=== PATIENT | male | born 1985 | race American Indian/Alaskan Native ===

== ENCOUNTER 2018-12-08 13:23 | Emergency (ER) | payer MEDICAID ==
--- NOTE | 2018-12-08 13:31 | Event Note ---
ED Screening Note ED Screening Note: RUQ PAIN PAIN ON PALPATION This initial assessment/diagnostic orders/clinical plan/treatment(s) is/are subj ect to change based on patients health status, clinical progression and re- assessment by fellow clinical providers in the ED. Further treatment and workup at subsequent clinical providers discretion. Patient/guardian urged not to elope from the ED as their condition may be serious if not clinically assessed and managed. Initial orders include: [facility] LABS
[2018-12-08 14:21] LABS: Hematocrit 42.8 % (35.5-45.6); Hemoglobin 14.7 gm/dl (11.8-15.2); Mean Corpuscular HGB Conc 34 % (32-34); Mean Corpuscular Volume 86 fl (84-94); Platelet Count 255 K/mm3 (140-440); Red Blood Count 4.96 M/mm3 (3.65-5.03); Red Cell Distribution Width 13.3 % (13.2-15.2)
[2018-12-08] MEDS ORDERED: CATAPRES PO ONE (14:44)
[2018-12-08] MEDS ORDERED: ZOFRAN IM ONE (14:44)
[2018-12-08] MEDS ORDERED: MORPHINE IM ONE (14:44)
[2018-12-08 14:46] LABS: Alanine Aminotransferase 37 units/L (7-56); Albumin 4.5 g/dL (3.9-5); BUN/Creatinine Ratio 10; Blood Urea Nitrogen 10 mg/dL (9-20); Calcium 9.7 mg/dL (8.4-10.2); Hemolysis Index 3
--- NOTE | 2018-12-08 14:49 | Emergency Department Report ---
<CARLOS MARY - Last Filed: 12/08/18 19:29> ED Abdominal Pain HPI - General Chief Complaint: Back Pain/Injury Stated Complaint: CHEST PAIN Time Seen by Provider: 12/08/18 13:29 - Related Data Home Medications Medication Instructions Recorded Confirmed Last Taken HYDROcodone/APAP 7.5-325 [[place] 1 each PO Q6HR PRN 12/23/14 12/23/14 12/20/14 7.5/325] Previous Rx's Medication Instructions Recorded Last Taken Type HYDROcodone/APAP 5-325 [[place] 1 each PO Q6HR PRN #20 tablet 12/24/14 Unknown Rx 5/325] Ibuprofen [Motrin] 600 mg PO Q8H PRN #40 tablet 12/24/14 Unknown Rx cephALEXin [Keflex] 500 mg PO Q6HR #40 capsule 12/24/14 Unknown Rx amLODIPine [Norvasc] 5 mg PO DAILY 30 Days #30 tab 12/08/18 Unknown Rx Allergies Allergy/AdvReac Type Severity Reaction Status Date / Time No Known Allergies Allergy Verified 12/23/14 20:45 ED Past Medical Hx - Medications Home Medications: Home Medications Medication Instructions Recorded Confirmed Last Taken Type HYDROcodone/APAP 7.5-325 [[place] 1 each PO Q6HR PRN 12/23/14 12/23/14 12/20/14 H istory 7.5/325] HYDROcodone/APAP 5-325 [[place] 1 each PO Q6HR PRN #20 tablet 12/24/14 Unknown Rx 5/325] Ibuprofen [Motrin] 600 mg PO Q8H PRN #40 tablet 12/24/14 Unknown Rx cephALEXin [Keflex] 500 mg PO Q6HR #40 capsule 12/24/14 Unknown Rx amLODIPine [Norvasc] 5 mg PO DAILY 30 Days #30 tab 12/08/18 Unknown Rx ED Medical Decision Making - Lab Data Result diagrams: 12/08/18 13:49 12/08/18 13:49 - Radiology Data Radiology results: report reviewed Patient: ROSE SHARIF MR# : [id number] : 1985 Acct:[id number] Age/Sex: 33 / M ADM Date: 12/08/18 Loc: ED Attending Dr: Ordering Physician: ELVA FIGUEREDO Date of Service: 12/08/18 Procedure(s): US abdomen limited Accession Number(s): [id number] cc: ELVA FIGUEREDO ULTRASOUND ABDOMEN, LIMITED (RIGHT UPPER QUADRANT) INDICATION: right upper quadrant tenderness. COMPARISON: None available. FINDINGS: Pancreas: Obscured by overlying bowel gas. Liver: The liver is diffusely echogenic suggestive of steatosis. The liver is otherwise unremarkable. Gallbladder: Normal. Bile ducts: Normal. Common Bile Duct measures 2 mm. Free fluid: None. Additional Findings: None. IMPRESSION: 1. Gallbladder is unremarkable, no biliary dilatation. 2. Probable hepatic steatosis. 3. The pancreas is obscured by bowel gas. Signer Name: Benjamín Cowan MD Signed: 12/08/2018 5:04 PM Workstation Name: [id number] Transcribed By: SHERIF Dictated By: Benjamín Cowan MD Electronically Authenticated By: Benjamín Cowan MD Signed Date/Time: 12/08/181703 DD/ 02 TD/TT: ED Disposition Clinical Impression: Right upper quadrant pain, Malignant hypertension HTN (hypertension) Qualifiers: Hypertension type: unspecified Qualified Code(s): I10 - Essential (primary) hypertension Disposition: DC-01 TO HOME OR SELFCARE Is pt being admited?: No Does the pt Need Aspirin: No Condition: Stable Instructions: Abdominal Pain (ED), Hypertension (ED) Additional Instructions: CAT scan of the abdomen shows no acute abnormalities. Please take Tylenol or Motrin as needed for pain management. He is very important for you to take this amlodipine for your elevated blood pressure. I also referred G to a [facility] as well as her primary care provider to follow up for your hypertension and abdominal pains. Prescriptions: amLODIPine [Norvasc] 5 mg PO DAILY 30 Days #30 tab Referrals: PRIMARY CAREMD [Primary Care Provider] - 3-5 Days [facility] [Provider Group] - 3-5 Days ANTHONY PATE MD [Staff Physician] - 3-5 Days Forms: Accompanied Note, Work/School Release Form(ED) <ELVA FIGUEREDO - Last Filed: 12/09/18 20:06> ED Abdominal Pain HPI - General Source: patient Mode of arrival: Ambulatory Limitations: No Limitations - History of Present Illness Initial Comments: Patient is 33 years old male with no significant past medical history. Patient presented to the ER complaining of 5 day history of right upper quadrant pain with no radiation. Patient described his pain as crampy and sharp in nature. Patient denied any nausea or vomiting. Patient denied any fever or chills. Patient found to have a blood pressure of 165/111. MD Complaint: abdominal pain -: days(s) (5) Location: RUQ Migration to: no migration Severity scale (0 -10): 10 Consistency: intermittent ED Review of Systems ROS: Stated complaint: CHEST PAIN Other details as noted in HPI Comment: All other systems reviewed and negative Constitutional: denies: chills, fever Respiratory: denies: cough, shortness of breath, SOB with exertion Cardiovascular: denies: chest pain, palpitations, dyspnea on exertion Gastrointestinal: abdominal pain. denies: nausea, vomiting, diarrhea, constipation, hematemesis, melena, hematochezia Musculoskeletal: denies: back pain ED Past Medical Hx - Past Medical History Previous Medical History?: Yes Hx Hypertension: Yes Hx Asthma: Yes Additional medical history: Heart Mumur - Surgical History Past Surgical History?: Yes Hx Appendectomy: Yes Additional Surgical History: Appendix Removal - Social History Smoking Status: Never Smoker Substance Use Type: None ED Physical Exam - General Limitations: No Limitations General appearance: alert, in no apparent distress - Head Head exam: Present: atraumatic, normocephalic, normal inspection - Eye Eye exam: Present: normal appearance, PERRL - ENT ENT exam: Present: normal exam, normal orophraynx, mucous membranes moist - Neck Neck exam: Present: normal inspection, full ROM. Absent: tenderness, meningismus, lymphadenopathy, thyromegaly - Respiratory Respiratory exam: Present: normal lung sounds bilaterally. Absent: respiratory distress, wheezes, rales, rhonchi, chest wall tenderness - Cardiovascular Cardiovascular Exam: Present: regular rate, normal rhythm, normal heart sounds - GI/Abdominal GI/Abdominal exam: Present: soft, normal bowel sounds. Absent: distended, tenderness, guarding, rebound, rigid, organomegaly, mass, bruit, pulsatile mass, hernia - Extremities Exam Extremities exam: Present: normal inspection, full ROM, normal capillary refill. Absent: pedal edema, calf tenderness - Back Exam Back exam: Present: normal inspection, full ROM. Absent: CVA tenderness (R), CVA tenderness (L), muscle spasm, paraspinal tenderness, vertebral tenderness, rash noted - Neurological Exam Neurological exam: Present: alert, oriented X3, CN II-XII intact, normal gait, reflexes normal - Psychiatric Psychiatric exam: Present: normal mood - Skin Skin exam: Present: warm, intact, normal color ED Course Vital Signs 12/08/18 12/08/18 12/08/18 13:28 14:16 14:54 Temperature 98.3 F Pulse Rate 79 74 Respiratory 18 16 Rate Blood Pressure 165/111 Blood Pressure 156/107 [Left] O2 Sat by Pulse 100 Oximetry 12/08/18 12/08/18 15:28 17:13 Temperature 98.9 F Pulse Rate 81 Respiratory 17 18 Rate Blood Pressure Blood Pressure 137/77 [Left] O2 Sat by Pulse 98 Oximetry ED Medical Decision Making - Lab Data Result diagrams: 12/08/18 13:49 12/08/18 13:49 - Medical Decision Making Patient is 33 years old male with no significant past medical history. Patient presented to the ER complaining of 5 day history of right upper quadrant pain with no radiation. Patient described his pain as crampy and sharp in nature. Patient denied any nausea or vomiting. Patient denied any fever or chills. Patient found to have a blood pressure of 165/111. Patient labs reviewed and is unremarkable. Patient received morphine and Zofran. He also received clonidine for high blood pressure. Gallbladder Ultrasound is pending. Critical care attestation.: If time is entered above; I have spent that time in minutes in the direct care of this critically ill patient, excluding procedure time. ED Disposition Is pt being admited?: No
[2018-12-08 15:11] LABS: Bilirubin,Urine NEG (Negative); Blood,Urine SM (Negative); Color,Urine Yellow (Yellow); Mucus,Urine FEW /HPF; Urobilinogen,Urine < 2.0 mg/dL (<2.0)
--- NOTE | 2018-12-08 17:08 | Ultrasound Report ---
ULTRASOUND ABDOMEN, LIMITED (RIGHT UPPER QUADRANT) INDICATION: right upper quadrant tenderness. COMPARISON: None available. FINDINGS: Pancreas: Obscured by overlying bowel gas. Liver: The liver is diffusely echogenic suggestive of steatosis. The liver is otherwise unremarkable. Gallbladder: Normal. Bile ducts: Normal. Common Bile Duct measures 2 mm. Free fluid: None. Additional Findings: None. IMPRESSION: 1. Gallbladder is unremarkable, no biliary dilatation. 2. Probable hepatic steatosis. 3. The pancreas is obscured by bowel gas. Signer Name: Benjamín Cowan MD Signed: 12/08/2018 5:04 PM Workstation Name: [id number]
[2018-12-08 17:14] VITALS: BP 137/77
== END 2018-12-08 17:43 | disposition home or self-care (01) ==
LOC: ED 13:23
DX: I10 Essential (primary) hypertension (principal); Z79.899 Other long term (current) drug therapy; R10.11 Right upper quadrant pain; Z90.49 Acquired absence of other specified parts of digestive tract; Z79.1 Long term (current) use of non-steroidal anti-inflammatories (NSAID); J45.909 Unspecified asthma, uncomplicated
CPT/HCPCS: 36415; 76705; 80053; 81001; 83690; 85027; 96372; 99284; J2270; J2405

== ENCOUNTER 2020-05-30 10:33 | Emergency (ER) | payer SELFPAY ==
--- NOTE | 2020-05-30 10:49 | Emergency Department Report ---
Blank Doc - Documentation Documentation: 35-year-old male that presents with chest tightness, shortness of breath and c ough. Tachycardia with pulse ox of 94 in triage. 1- This initial assessment/diagnostic orders/clinical plan/ treatment(s) is/are subject to change based on pt's health status, clinical progression and re- assessment by fellow clinical providers in the ED. Further treatment and workup at subsequent clinical provers discretion. Patient/guardians urged not to elope from ED as their condition may be serious if not clinically assessed and managed. 2-cardiac work-up
[2020-05-30 11:35] LABS: Alanine Aminotransferase 30 units/L (7-56); Albumin 4.4 g/dL (3.9-5); BUN/Creatinine Ratio 16; Blood Urea Nitrogen 16 mg/dL (9-20); Calcium 9.1 mg/dL (8.4-10.2); Hemolysis Index 2
[2020-05-30] MEDS ORDERED: IBUPROFEN 400 MG TAB PO ONE (12:06)
[2020-05-30] MEDS ORDERED: ACETAMINOPHEN 325 MG TAB PO ONE (12:06)
--- NOTE | 2020-05-30 12:06 | Emergency Department Report ---
ED General Adult HPI - General Chief complaint: Dyspnea/Respdistress Stated complaint: LATHA/COUGH PUI?: No Time Seen by Provider: 05/30/20 10:41 Source: patient, RN notes reviewed, old records reviewed Mode of arrival: Ambulatory Limitations: No Limitations, Language Barrier - History of Present Illness Initial comments: The patient was evaluated in the emergency department for symptoms described in the history of present illness. He/she was evaluated in the context of the global COVID-19 pandemic, which necessitated consideration that the patient might be at risk for infection with the virus that causes COVID-19. Institu tional protocols and algorithms that pertain to the evaluation of patients at risk for COVID-19 are in a state of rapid change based on information released by regulatory bodies including the CDC and federal and state organizations. These policies and algorithms were followed during the patient's care in the emergency department. Please note that these policies, procedures and recommendations changed on a rapid basis. The patient is a 35-year-old gentleman. Patient has a history of obesity, presumed obstructive sleep apnea, does not have a CPAP as he has not had outpatient formal sleep study performed, tobacco use, cannabis use, diagnosed with COVID-01 November 2019. The patient presents to the ER today with a complaint of sore throat, swollen glands, and cough, intermittently productive of clear, dry, and yellow sputum. He denies headache, neck pain, chest pain, new or different exertional shortness of breath, vomiting and diaphoresis, denies travel, surgery, leg pain, leg swelling, DVT and pulmonary embolism risk factors. Patient does admit to 2 new sexual partners in the past few months, on questioning. Reports that he typically participates with barrier protection. No urinary symptoms. No musculoskeletal pain. Reports that his symptoms today are much milder than when he had Covid last year. -: Gradual, days(s) (1 to 2 days) Location: mouth (Throat) Radiation: non-radiation Quality: aching Consistency: constant Improves with: rest Worsens with: movement - Related Data Previous Rx's Medication Instructions Recorded Last Taken Type Ibuprofen [Motrin] 600 mg PO Q8H PRN #40 tablet 12/24/14 Unknown Rx amLODIPine 5 mg PO DAILY 30 Days #30 tab 12/08/18 Unknown Rx Acetaminophen [Non-Aspirin Extra 500 mg PO Q6HR PRN #30 tablet 05/30/20 Unknown Rx Strength] Albuterol Sulfate [Proair 90 mcg IH Q4HR PRN #2 aer.pow.ba 05/30/20 Unknown Rx Respiclick] Ibuprofen [Motrin] 600 mg PO Q8H PRN #30 tablet 05/30/20 Unknown Rx Allergies Allergy/AdvReac Type Severity Reaction Status Date / Time No Known Allergies Allergy Verified 05/30/20 10:39 ED Review of Systems ROS: Stated complaint: LATHA/COUGH Other details as noted in HPI Constitutional: denies: fever, malaise, weakness Eyes: denies: eye discharge ENT: throat pain, congestion. denies: dental pain, epistaxis Respiratory: cough. denies: wheezing Cardiovascular: denies: chest pain, palpitations, orthopnea, syncope Gastrointestinal: denies: abdominal pain, hematemesis, melena, hematochezia Genitourinary: denies: dysuria Musculoskeletal: denies: back pain Skin: denies: lesions Neurological: denies: weakness ED Past Medical Hx - Past Medical History Hx Hypertension: Yes Hx Asthma: Yes Additional medical history: Heart Mumur - Surgical History Hx Appendectomy: Yes Additional Surgical History: Appendix Removal - Social History Smoking Status: Current Every Day Smoker Substance Use Type: None - Medications Home Medications: Home Medications Medication Instructions Recorded Confirmed Last Taken Type Ibuprofen [Motrin] 600 mg PO Q8H PRN #40 tablet 12/24/14 Unknown Rx amLODIPine 5 mg PO DAILY 30 Days #30 tab 12/08/18 Unknown Rx Acetaminophen [Non-Aspirin Extra 500 mg PO Q6HR PRN #30 tablet 05/30/20 Unknown Rx Strength] Albuterol Sulfate [Proair 90 mcg IH Q4HR PRN #2 aer.pow.ba 05/30/20 Unknown Rx Respiclick] Ibuprofen [Motrin] 600 mg PO Q8H PRN #30 tablet 05/30/20 Unknown Rx ED Physical Exam - General Limitations: No Limitations General appearance: alert, in no apparent distress, obese - Head Head exam: Present: atraumatic, normocephalic - Eye Eye exam: Present: normal appearance, PERRL, EOMI. Absent: nystagmus - ENT ENT exam: Present: normal orophraynx, mucous membranes moist, normal external ear exam, other (Patient is speaking in full sentences. There is no stridor. There is no dysphonia. The uvula is midline. There is no elevation of the base of the tongue. Posterior pharynx is erythematous.) - Neck Neck exam: Present: normal inspection, tenderness, full ROM, lymphadenopathy - Respiratory Respiratory exam: Present: normal lung sounds bilaterally. Absent: respiratory distress, wheezes, rales, rhonchi, stridor, chest wall tenderness, accessory muscle use, decreased breath sounds, prolonged expiratory - Cardiovascular Cardiovascular Exam: Present: regular rate, normal rhythm, normal heart sounds. Absent: bradycardia, tachycardia, irregular rhythm, systolic murmur, diastolic murmur, rubs, gallop - GI/Abdominal GI/Abdominal exam: Present: soft. Absent: distended, tenderness, guarding, rebound, rigid, pulsatile mass - Rectal Rectal exam: Present: deferred - Extremities Exam Extremities exam: Present: normal inspection, full ROM, other (2+ pulses noted in the bilateral upper and lower extremities. There is no palpable cord. negative Homans sign. Muscular compartments are soft. The pelvis is stable.). Absent: pedal edema, calf tenderness - Back Exam Back exam: Present: normal inspection, full ROM. Absent: tenderness, CVA tenderness (R), CVA tenderness (L), paraspinal tenderness, vertebral tenderness - Neurological Exam Neurological exam: Present: alert, oriented X3, normal gait, other (No facial droop. Tongue midline. Extraocular movements intact bilaterally. Facial sensation intact to light touch in V1, V2, V3 distribution bilaterally. 5 and a 5 strength in 4 extremities. Sensation intact to light touch in 4 extremities.). Absent: motor sensory deficit - Psychiatric Psychiatric exam: Present: normal affect, normal mood - Skin Skin exam: Present: warm, dry, intact, normal color. Absent: rash ED Course Vital Signs 05/30/20 05/30/20 05/30/20 10:41 12:12 12:23 Temperature 97.4 F L Pulse Rate 102 H Respiratory 22 18 18 Rate Blood Pressure 146/99 O2 Sat by Pulse 94 100 Oximetry O2 Sat by Pulse Oximetry [ Digit-Finger] 05/30/20 12:34 Temperature Pulse Rate Respiratory Rate Blood Pressure O2 Sat by Pulse Oximetry O2 Sat by Pulse 99 Oximetry [ Digit-Finger] - Reevaluation(s) Reevaluation #1: 05/30/20 12:20 Differential diagnosis, including but not limited to: Pharyngitis, viral versus bacterial, bronchitis, chronic tobacco, chronic cannabis use Assessment and plan: 35-year-old gentleman, with resolved tachycardia, who is not currently tachycardic, tachypneic or hypoxic, heart rate 93 bpm at this time, saturating at 98% on oxygen, without DVT or pulmonary embolism risk factors, who is low risk by Wells criteria for pulmonary embolism, who had COVID-19 last year, likely presenting with pharyngitis, probable viral, and or bronchitis. Counseled patient to discontinue tobacco, marijuana smoke consumption. We will send a rapid strep. We will treat the patient's symptoms. Laboratory studies and x-ray of the chest were ordered prior to my personal evaluation of this patient. So far, they are fairly unremarkable. Patient counseled on need to follow-up with an outpatient primary care doctor, or sleep physician for formal sleep study, to diagnose presumed obstructive sleep apnea, which he reports has been suspected chronically, but is not acutely decompensated, we also discussed return precautions. 05/30/20 12:22 Troponin was sent prior to my personal evaluation of this patient. Based off of the history and physical, do not see indication to initiate cardiac or st ratification. However, troponin negative, EKG nonspecific, patient denies chest pain and new/different exertional shortness of breath to myself. Symptoms present for at least 24 hours, therefore, as per the [employer] clinical policy, acute myocardial infarction may be ruled out with 1 set of troponin/cardiac enzymes. Furthermore, the patient is at low risk for major adverse cardiac event as per the heart score. Reevaluation #2: 05/30/20 13:00 Blood pressure 116/72. Oxygen saturation: 99% on room air. Heart rate 92 bpm. Patient speaking on a cellular phone. Rapid strep negative. X-ray of the chest clear. Patient feels improved. He is suitable for discharge at this time. Return precautions are reviewed. - Pulse Oximetry Interpretation Digit-Finger Initial Pulse Oximetry Readin O2 Sat by Pulse Oximetry: 99 Actions Taken: none ED Medical Decision Making - Lab Data Result diagrams: 05/30/20 10:52 Vital Signs 05/30/20 05/30/20 10:41 12:12 Temperature 97.4 F L Pulse Rate 102 H Respiratory 22 18 Rate Blood Pressure 146/99 O2 Sat by Pulse 94 100 Oximetry Lab Results 05/30/20 05/30/20 Range/Units 10:52 10:52 Sodium 139 (137-145) mmol/L Potassium 4.2 (3.6-5.0) mmol/L Chloride 104.0 (98-107) mmol/L Carbon Dioxide 29 (22-30) mmol/L Anion Gap 10 mmol/L BUN 16 (9-20) mg/dL Creatinine 1.0 (0.8-1.3) mg/dL Estimated GFR > 60 ml/min BUN/Creatinine Ratio 16 % Glucose 113 H (75-100) mg/dL Calcium 9.1 (8.4-10.2) mg/dL Magnesium 1.90 (1.7-2.3) mg/dL Total Bilirubin 0.30 (0.1-1.2) mg/dL AST 19 (5-40) units/L ALT 30 (7-56) units/L Alkaline Phosphatase 66 (35-129) units/L Troponin T < 0.010 (0.00-0.029) ng/mL Total Protein 7.8 (6.3-8.2) g/dL Albumin 4.4 (3.9-5) g/dL Albumin/Globulin Ratio 1.3 % - EKG Data -: EKG Interpreted by Mi EKG shows normal: sinus rhythm Rate: normal - EKG Data When compared to previous EKG there are: previous EKG unavailable 05/30/20 12:30 Sinus rhythm, 93 bpm. Normal axis, high left ventricular voltage, QTC within normal limits, atrial enlargement, poor R wave progression. Abnormal EKG. Not a STEMI. - Radiology Data Radiology results: pending, report reviewed, image reviewed XR chest routine 2V INDICATION / CLINICAL INFORMATION: cough COMPARISON: None available. FINDINGS: SUPPORT DEVICES: None. HEART / MEDIASTINUM: No signif icant abnormality. LUNGS / PLEURA: Lungs are clear. Costophrenic sulci are sharp. No pneumothorax. ADDITIONAL FINDINGS: Remote right-sided rib fractures. IMPRESSION: 1. No acute findings. Signer Name: Kodak Flores MD Signed: 05/30/2020 11:52 AM Workstation Name: [email or web address] Critical care attestation.: If time is entered above; I have spent that time in minutes in the direct care of this critically ill patient, excluding procedure time. ED Disposition Clinical Impression: Pharyngitis, Bronchitis, Tobacco use, Marijuana use Disposition: DC-01 TO HOME OR SELFCARE Is pt being admited?: No Does the pt Need Aspirin: No Condition: Good Instructions: Upper Respiratory Infection, Adult, [id number], Pharyngitis, [id number], Chronic Bronchitis (ED) Additional Instructions: Recommend that patient discontinue smoking cigarettes, tobacco, and all smoke products/marijuana. Patient most likely has bronchitis and pharyngitis. This is typically viral in nature. It is typically self resolving. Consumption of smoke products may worsen the symptoms. Typically, symptoms of bronchitis may take 3 to 6 weeks to completely resolve. Please take the pain medication, cough medication as needed and directed. Please follow-up with a primary care doctor, such as Dr. Perry, Within the next 2 weeks. Patient may have obstructive sleep apnea, and needs to follow-up with an o utpatient primary care doctor, or internet marketer, such as Dr. Martines, Within the next 4 weeks for formal evaluation for outpatient sleep testing. It is important to have outpatient sleep testing performed, because if the patient does indeed have obstructive sleep apnea, will likely require intervention, such as nocturnal CPAP/BiPAP. Long-term complications of untreated sleep apnea include hypertension, stroke, disability, loss of quality of life. Cultures were sent today, and results will be available in the next 3 to 5 days. Please have a primary care doctor contact the medical records department to obtain culture results. Please return to the emergency room right away with new pain, worsened pain, migration of pain, projectile vomiting, change in mental status, confusion, inability to tolerate liquid feeds, new, worsened or different symptoms not present on the initial emergency room evaluation. Prescriptions: Ibuprofen [Motrin] 600 mg PO Q8H PRN #30 tablet PRN Reason: Pain Acetaminophen [Non-Aspirin Extra Strength] 500 mg PO Q6HR PRN #30 tablet PRN Reason: Pain , Severe (7-10) Albuterol Sulfate [Proair Respiclick] 90 mcg IH Q4HR PRN #2 aer.pow.ba PRN Reason: Wheezing Referrals: DESI PERRY MD [Staff Physician] - 7-10 days MIGUEL MARTINES MD [Staff Physician] - as needed Forms: Work/School Release Form(ED) Heart Score - HEART Score History: Slightly suspicious EKG: Non-specific Age: < 45 Risk factors: 1-2 risk factors Troponin: < normal limit HEART Score: 2 - Critical Actions Critical Actions: 0-3 pts:0.9-1.7%risk of adverse cardiac event.Candidate for discharge
--- NOTE | 2020-05-30 12:57 | XRay Report ---
XR chest routine 2V INDICATION / CLINICAL INFORMATION: cough COMPARISON: None available. FINDINGS: SUPPORT DEVICES: None. HEART / MEDIASTINUM: No significant abnormality. LUNGS / PLEURA: Lungs are clear. Costophrenic sulci are sharp. No pneumothorax. ADDITIONAL FINDINGS: Remote right-sided rib fractures. IMPRESSION: 1. No acute findings. Signer Name: Kodak Flores MD Signed: 05/30/2020 12:52 PM Workstation Name: [id number]
[2020-05-30 13:02] VITALS: BP 136/84
== END 2020-05-30 13:14 | disposition home or self-care (01) ==
LOC: ED 10:33
DX: J40 Bronchitis, not specified as acute or chronic (principal); J02.9 Acute pharyngitis, unspecified; F12.90 Cannabis use, unspecified, uncomplicated; I10 Essential (primary) hypertension; F17.200 Nicotine dependence, unspecified, uncomplicated; Z79.899 Other long term (current) drug therapy; Z98.890 Other specified postprocedural states
CPT/HCPCS: 36415; 71046; 80053; 83735; 84484; 87116; 87430; 93005

== ENCOUNTER 2020-06-13 08:44 | Emergency (ER) | payer SELFPAY ==
[2020-06-13 09:05] VITALS: BP 177/102
--- NOTE | 2020-06-13 09:07 | Event Note ---
ED Screening Note Date of service: 06/13/20 Time: 09:05 ED Screening Note: 35-year-old -Italian male presents to the emergency room complaining of nausea and diarrhea. Patient does have a history of hypertension and states he has been off his medication for 2 months for " just being a man". He also reports he is seeing blood in his stool. This initial assessment/diagnostic orders/clinical plan/treatment(s) is/are subject to change based on patients health status, clinical progression and re- assessment by fellow clinical providers in the ED. Further treatment and workup at subsequent clinical providers discretion. Patient/guardian urged not to elope from the ED as their condition may be serious if not clinically assessed and managed. Initial orders include:
[2020-06-13 09:36] LABS: Basophils # (Auto) 0.1 K/mm3 (0.0-0.1); Basophils % (Auto) 0.6 % (0.0-1.8); Eosinophils % (Auto) 0.2 % (0.0-4.3); Hematocrit 44.7 % (35.5-45.6); Hemoglobin 15.1 gm/dl (11.8-15.2); Lymphocytes # (Auto) 1.6 K/mm3 (1.2-5.4); Lymphocytes % (Auto) 16.3 % (13.4-35.0); Mean Corpuscular HGB Conc 34 % (32-34); Mean Corpuscular Volume 86 fl (84-94); Monocytes # (Auto) 0.5 K/mm3 (0.0-0.8); Monocytes % (Auto) 5.1 % (0.0-7.3); Platelet Count 303 K/mm3 (140-440); Red Blood Count 5.21 M/mm3 (3.65-5.03); Red Cell Distribution Width 13.4 % (13.2-15.2)
[2020-06-13 10:15] LABS: Alanine Aminotransferase 39 units/L (7-56); Albumin 4.8 g/dL (3.9-5); BUN/Creatinine Ratio 12; Blood Urea Nitrogen 14 mg/dL (9-20); Hemolysis Index 0
== END 2020-06-13 11:05 | disposition left against medical advice (07) ==
LOC: ED 08:44
DX: R10.9 Unspecified abdominal pain (principal); M54.9 Dorsalgia, unspecified; Z53.21 Procedure and treatment not carried out due to patient leaving prior to being seen by health care provider
CPT/HCPCS: 36415; 80053; 85025; 86850; 86900; 86901